=== PATIENT | male | born 1975 | race Caucasian/White ===

== ENCOUNTER 2024-02-02 00:32 | Emergency (ER) | payer OTHER, SELFPAY ==
[2024-02-02 00:33] VITALS: BMI 35.0
[2024-02-02 00:35] VITALS: BP 136/73
--- NOTE | 2024-02-02 01:03 | ED.GENMED ---
History of Present Illness
General
Chief Complaint: Extremity Pain (non-traumatic)
Source: patient
Exam Limitations: none
Time Seen by Provider: 02/02/24 00:51
History of Present Illness
History of Present Illness:
This is a 48 year old male that comes in with c/o swelling and redness of the left second toe. States that he has been to the Ward Assistant 2 Mondays ago. States that he was told to wear a toe crutch. States that he also put on a bunion pad on the toe
and for 2 mornings he did not change the pad. Sates that he changed the pad today and the skin is sluffing and the toe is very red and swollen. Significant other with patient states that there was a smell when they took off the pad. States that he
was a little nauseated. Denies any fever, chills, chest pain, SOB, abd pain, vomiting, diarrhea, headache, dizziness, urinary burning.
Past History
Past History
ED Past Medical History: GERD, HTN, Hypercholesterolemia, NIDDM and Other (Renal calculus, Blind in the right eye, Neuropathy)
ED Past Surgical History: Orthopedic (Right second Toe tip removed) and Other (Nasal surgery, Right eye surgery X 7)
Social History
Tobacco: Former smoker
Alcohol: None
Personal:
Living: with family
Review of Systems
Review of Systems
All Other Systems: ROS reviewed and negative except as documented in HPI and ROS
Constitutional: Reports no symptoms; Denies fever or chills
EENT: Reports no symptoms
Respiratory: Reports no symptoms; Denies cough or trouble breathing
Cardiac: Reports no symptoms; Denies chest pain
ABD/GI: Reports nausea; Denies abdominal pain, vomiting or diarrhea
: Reports no symptoms; Denies dysuria, frequency or urgency
Skin: Reports other (right second toe swollen and red)
Neurological: Reports no symptoms; Denies dizzy or headache
Psychiatric: Reports no symptoms
Phy Exam
General Physical Exam
General Presentation: well appearing and no apparent distress
General age: appears stated age
General Skin: warm and dry
General Habitus: normal
General Mental: alert
General Hydration: appears well hydrated
ENT Exam
ENT Exam: TM's normal, pharynx normal and neck supple
Eye Exam
Eye Exam: EOMI
Cardiovascular Exam
Cardiovascular Exam: regular rate/rhythm and normal peripheral pulses
Pulmonary Exam
Pulmonary Exam: lungs clear, no respiratory distress, no rales, chest non tender, no crackles, no rhonchi, no wheezing and no cough
Gastrointestinal Exam
Gastrointestinal Exam: normal bowel sounds, non tender, soft, no organomegaly, no pulsatile mass and non distended
Musculoskeletal Exam
Musculoskeletal Exam: full ROM and no edema
Skin Exam
Skin Exam: normal color, warm/dry, no petechia and redness (of the left second toe with skin sluffing and open wound on the planter aspect. Toe is very swollen )
Psychiatric Exam
Psychiatric Exam: normal mood/affect
Course
Orders/Labs/Results
Orders:
Orders
02/02/24 01:04
Toes 2 Views, Left CR [CR Toe(s) Min 2 Vw Left] Urgent
Comment:
Reason For Exam: Red and swollen.
Indicate Which Toe:: Second
02/02/24 01:22
Complete Blood Count/With Diff Urgent
Comprehensive Metabolic Panel Urgent
Lactic Acid Urgent
Wound Culture [Wound/Abscess/Other Culture] Urgent
LITTLE Source: Toe
Specimen Description:
Date Specimen was Collected: 02/02/24
Time Specimen was Collected: 01:11
Comment: Left second toe
02/02/24 01:54
Cephalexin Monohydrate [Keflex] 500 mg PO NOW STA
Sulfamethox./Trimethoprim Ds [Bactrim Ds 800 mg/160 mg] 1 tablet PO NOW STA
Abnormal Lab Results
02/02/24
01:22
RBC 4.08 L 10^6/uL
(4.70-6.10)
Hct 38.0 L %
(39.0-52.0)
MCH 33.1 H pg
(27.0-31.0)
Neutrophils % 76.1 H %
(42.2-75.2)
Lymphocytes % 14.5 L %
(20.5-51.1)
Glucose 139 H mg/dl
(70-99)
02/02/24 01:22
02/02/24 01:22
Hyperglycemia. Labs unremarkable. Lactic acid normal at 1.9
Vital Signs
Initial and Last Documented VS:
Initial Vital Signs
Temp Pulse Resp BP Pulse Ox
99.4 F 87 20 136/73 97
02/02/24 00:35 02/02/24 00:35 02/02/24 00:35 02/02/24 00:35 02/02/24 00:35
Last Documented Vital Signs
Temp Pulse Resp BP Pulse Ox
99.4 F 87 20 136/73 97
02/02/24 00:35 02/02/24 00:35 02/02/24 00:35 02/02/24 00:35 02/02/24 00:35
MDM/Problems Addressed
Differential Diagnosis Includes:
Cellulitis, Osteo
MDM/Problems Addressed:
This is a 48 year old male that comes in with c/o left second toe redness, swelling. States that he saw the business technology professor 2 Mondays ago and he was told to wear a toe crutch. Patient also put on a bunion pad and did not remove the pad for 2 days. States
that tonight when they took off the pad the toe is red and swollen. Significant other states that there was a smell.
Will check labs, X-ray toe
Back into see patient. Patient blood work shows that his WBC are normal along with his lactic acid. X-ray is negative for fractures or any obvious osteo. Will start patient on antibiotics. Patient to follow up with the business technology professor for further
evaluation. Patient to return with fever, increased redness or any other concerns.
Chronic conditions affecting care: DM (Neuropathy)
Acute Exacerbation and/or Progression of Chronic Illness: DM (Neuropathy)
*Radiology
Radiology exam reviewed: preliminary read by ED provider (Toe second left- Negative for fracture or osteomyelitis)
*Pulse Oximetry
Patient hypoxic: no
*EKG
Interpreted by ED Provider?: NA
Rate: EKG- N/A
*Gun Fertilizer Interpretation
Rate: Gun Fertilizer- N/A
*Critical Care Note
Total Time (30-74mins, 75-104mins- exclusive of procedures): Not Applicable
ED Attending Note
-
Portions of this chart may have been created with voice recognition software.� Occasional wrong word or��sound alike� substitutions may have occurred due to the inherent limitations of voice recognition software.
Discharge Plan
Departure
Patient Disposition: Home (Routine Discharge)
Date of Disposition: 02/02/24
Time of Disposition: 01:56
Patient with high blood pressure during this ER visit?: Yes
Condition: Good
Covid-19: Not Applicable
Discharge Problem:
Cellulitis of second toe of left foot
Instructions: Cellulitis (Skin Infection), Adult ED, Wound Care ED, BLOOD PRESSURE
Prescriptions:
New
cephalexin 500 mg capsule
500 mg PO QID Qty: 39 0RF
sulfamethoxazole-trimethoprim [Bactrim DS] 800-160 mg tablet
1 tab PO BID Qty: 19 0RF
No Action
simvastatin 20 MG tablet
20 mg PO DAILY
lisinopril 10 MG tablet
10 mg PO DAILY
metformin 500 MG tablet extended release 24 hr
1,000 mg PO BID
empagliflozin [Jardiance] 25 MG tablet
25 mg PO DAILY
amoxicillin-pot clavulanate 1 TABLET tablet
1 tab PO Q12 7 Days Qty: 14 0RF
Rx Instructions:
One tab by mouth twice daily x 7 days.
Referrals:
Gil To CRNP [Family Provider] -
Activity Restrictions/Additional Instructions:
As discussed, your blood work shows that your white blood cell count is normal along with your Lactic acid. Your X-ray is negative for any fractures or obvious osteo. Please follow up with your Ward Assistant. You have been given your first dose of
antibiotics here and prescriptions have been sent to your pharmacy. IF YOU HAVE ANY FEVER, INCREASED REDNESS OR SWELLING OR YOU HAVE ANY OTHER CONCERNS PLEASE RETURN TO THE EMERGENCY ROOM.
Interventions
Interventions:
*Risk Screen - Suicide Last Done: 02/02/24 00:40
*General Assessment Last Done: 02/02/24 00:40
*ED COVID-19 Vaccine History Last Done: 02/02/24 00:40
ED-Skin Assessment Last Done: 02/02/24 01:37
ED-Peripheral Vascular Assessment Last Done: 02/02/24 01:37
ED-Musculoskeletal Assessment Last Done: 02/02/24 01:37
Discharge Date and Time
Print Language: TURKMEN
[2024-02-02 01:31] LABS: % Basophils 0.4 % (0-2); % Eosinophils 0.9 % (0-6); % Immature Granulocytes 0.2 % (0-0.5); % Lymphocytes 14.5 % (20.5-51.1); % Monocytes 7.9 % (1.7-9.3); % Neutrophils 76.1 % (42.2-75.2); Absolute Eosinophils 0.1 10^3/uL (0-0.7); Absolute Lymphocytes 1.2 10^3/uL (1.2-3.4); Absolute Monocytes 0.6 10^3/uL (0.1-0.6); Absolute Neutrophils 6.2 10^3/uL (1.4-6.5); Hemoglobin 13.5 g/dL (13.0-18.0); Mean Corp Hgb Conc. 35.5 g/dL (33.0-37.0); Mean Corpuscular Hgb 33.1 pg (27.0-31.0); Mean Corpuscular Volume 93.1 fL (80.0-94.0); Mean Platelet Volume 9.8 fL (7.4-10.4); Nucleated Red Blood Cells % 0 % (-); Platelet Count 185 10^3/uL (130-400); Red Blood Cell Count 4.08 10^6/uL (4.70-6.10); White Blood Cell Count 8.1 10^3/uL (4.8-10.8)
[2024-02-02 01:43] LABS: Lactic Acid 1.9 mmol/L (0.7-2.0)
[2024-02-02 01:44] LABS: ALT (SGPT) 20 U/L (0-50); AST (SGOT) 20 U/L (17-59); Albumin 4.2 g/dl (3.5-5.0); Alkaline Phosphatase 76 U/L (38-126); Blood Urea Nitrogen 18 mg/dl (9-20); Calcium 9.1 mg/dl (8.4-10.2); Carbon Dioxide 26 mmol/L (22-30); Chloride 104 mmol/L (98-107); Estimated Creatinine Clearance > 125 ml/min; Glucose 139 mg/dl (70-99); Sodium 143 mmol/L (135-145); Total Bilirubin 0.7 mg/dl (0.2-1.3); Total Protein 6.4 g/dl (6.3-8.2); eGFR > 60.00
[2024-02-02] MEDS: BACTRIM DS 800 MG/160 MG 1 TABLET PO (02:04)
[2024-02-02] MEDS: KEFLEX 500 MG PO (02:04)
== END 2024-02-02 02:38 | disposition home or self-care (01) ==
LOC: EMR 00:32
PROVIDERS: Clinical Nurse Specialist Family Health; EMERGENCY PHYSICIAN Student in an Organized Health Care Education/Training Program; FAMILY PHYSICIAN Registered Nurse
DX: L03.032 Cellulitis of left toe (principal); E11.40 Type 2 diabetes mellitus with diabetic neuropathy, unspecified; E78.00 Pure hypercholesterolemia, unspecified; I10 Essential (primary) hypertension; K21.9 Gastro-esophageal reflux disease without esophagitis; Z87.891 Personal history of nicotine dependence
CPT/HCPCS: 99284; 73660; 80053; 83605; 85025; 87070; 87071; 87077; 87147; 87186; 87205

== ENCOUNTER 2024-02-05 19:39 | Inpatient (IN) | payer OTHER, SELFPAY ==
[2024-02-05 14:38] VITALS: BP 137/93
--- NOTE | 2024-02-05 14:38 | ED.SKININJ ---
HPI-Injury
<Krystal Perry BUSINESS LAW PROFESSOR - Last Filed: 02/05/24 14:42>
General
Chief Complaint: Skin Problem
Time Seen by Provider: 02/05/24 16:53
<Clive Fernandes Jr., PA-C - Last Filed: 02/05/24 18:34>
General
Source: patient
Exam Limitations: none
Nursing documentation reviewed up to this point in time: agreed with
History of Present Illness-Injury
Is pt an associate of [facility]?: No
Initial Injury comments:
48-year-old male with past medical history of diabetes hypertension presenting to the emergency department today with concerns of a wound to the second toe of the left foot diagnosed with infection to the foot 3 days ago started on Keflex and
Bactrim has been taking this as prescribed with no improvement. Denies systemic symptoms but has had ongoing redness swelling and drainage. He spoke with his field operator that recommended going to the ER for likely IV antibiotics.
ED Provider Triage
<Krystal Perry BUSINESS LAW PROFESSOR - Last Filed: 02/05/24 14:42>
-
Patient seen by provider in Triage?: Seen in Triage
Attestation: A medical screening examination has been initiated by a qualified medical provider. Based on the assessment performed at this time, it has been determined that an emergent medical condition may exist and the patient has been informed
that further medical evaluation and possible additional diagnostic testing may be needed.
HPI: 48 yo male NIDDM with non healing would left 2nd toe despite being on antibiotics Keflex and Bactrim. Seen here 02/01 and had xray. Wound first noted 4 nights ago, was seen here, followed up with Podiatry next day, spoke over phone with
Podiatry today for no improvement in redness or swelling. Has neuropathy so little pain. Denies fever/chills, n/v.
GENERAL: Alert , in no apparent distress
EYE: No visual abnormalities.
ENT: No visible abnormalities.
LUNGS: No acute respiratory distress
NEUROLOGICAL: Alert and oriented
SKIN: Skin intact. No visible changes.
MUSCULOSKELETAL: Moving extremities normally
PSYCH: Normal and appropriate interaction.
This is a medical evaluation conducted in person to initiate diagnostic evaluation and provide initial therapeutics. Please see further documentation by the treating clinician.
Past History
<Krystal Perry, BUSINESS LAW PROFESSOR - Last Filed: 02/05/24 14:42>
Past History
ED Past Medical History: GERD, HTN, Hypercholesterolemia, NIDDM and Other (Renal calculus, Blind in the right eye, Neuropathy)
ED Past Surgical History: Orthopedic (Right second Toe tip removed) and Other (Nasal surgery, Right eye surgery X 7)
Social History
Tobacco: Former smoker
Alcohol: None
Personal:
Living: with family
Review of Systems
<Clive Fernandes Jr., PA-C - Last Filed: 02/05/24 18:34>
Review of Systems
Allergies reviewed?: Yes
All Other Systems: ROS reviewed and negative except as documented in HPI and ROS
Phy Exam
<Clive Fernandes Jr., PA-C - Last Filed: 02/05/24 18:34>
Physical Exam
Physical Exam:
GENERAL: Alert , in no apparent distress
EYE: pupils equal and reactive
NECK: Supple, no significant adenopathy.
ENT: o/p clr, mmm.
CARDIAC: Regular rate and rhythm .
LUNGS: Clear breath sounds bilaterally, no acute respiratory distress, no wheezes/rales/rhonchi
ABDOMEN: Soft, without focal tenderness, no r/g, no cvat
NEUROLOGICAL: Alert and oriented, no focal neuro deficits
SKIN: Redness and swelling to the left second toe circumferential redness tenderness palpation to the area skin breakdown over the dorsal DIP. No purulent drainage no fluctuance or induration warm and dry, skin intact.
MUSCULOSKELETAL: No edema, well perfused.
PSYCH: Normal and appropriate interaction.
Course
<Krystal Perry, BUSINESS LAW PROFESSOR - Last Filed: 02/05/24 14:42>
Orders/Labs/Results
Orders:
Orders
02/05/24 15:02
Complete Blood Count/With Diff Urgent
Comprehensive Metabolic Panel Urgent
02/05/24 18:12
Vancomycin [Vancocin] 2,000 mg 0.9% Sodium Chloride 500 ml [Nss] 500 ml IV NOW
02/05/24 18:27
Zosyn 4.5 grams IVPB NOW Piperacillin/Tazo 4.5 Gram [Zosyn] 4.5 gram in 100 ml IV NOW
Abnormal Lab Results
02/05/24
15:02
RBC 4.56 L 10^6/uL
(4.70-6.10)
MCH 31.8 H pg
(27.0-31.0)
02/05/24 15:02
02/05/24 15:02
Vital Signs
Initial and Last Documented VS:
Initial Vital Signs
Temp Pulse Resp BP Pulse Ox
98.0 F 78 16 137/93 98
02/05/24 14:38 02/05/24 14:38 02/05/24 14:38 02/05/24 14:38 02/05/24 14:38
Last Documented Vital Signs
Temp Pulse Resp BP Pulse Ox
98.0 F 82 18 119/86 100
02/05/24 14:38 02/05/24 16:35 02/05/24 16:35 02/05/24 16:35 02/05/24 16:35
<Clive Fernandes Jr., PA-C - Last Filed: 02/05/24 18:34>
Orders/Labs/Results
Orders:
Orders
02/05/24 15:02
Complete Blood Count/With Diff Urgent
Comprehensive Metabolic Panel Urgent
02/05/24 18:12
Vancomycin [Vancocin] 2,000 mg 0.9% Sodium Chloride 500 ml [Nss] 500 ml IV NOW
02/05/24 18:27
Zosyn 4.5 grams IVPB NOW Piperacillin/Tazo 4.5 Gram [Zosyn] 4.5 gram in 100 ml IV NOW
Abnormal Lab Results
02/05/24
15:02
RBC 4.56 L 10^6/uL
(4.70-6.10)
MCH 31.8 H pg
(27.0-31.0)
02/05/24 15:02
02/05/24 15:02
Vital Signs
Initial and Last Documented VS:
Initial Vital Signs
Temp Pulse Resp BP Pulse Ox
98.0 F 78 16 137/93 98
02/05/24 14:38 02/05/24 14:38 02/05/24 14:38 02/05/24 14:38 02/05/24 14:38
Last Documented Vital Signs
Temp Pulse Resp BP Pulse Ox
98.0 F 82 18 119/86 100
02/05/24 14:38 02/05/24 16:35 02/05/24 16:35 02/05/24 16:35 02/05/24 16:35
<Clive Fernandes Jr., PA-C - Last Filed: 02/05/24 18:34>
MDM/Problems Addressed
MDM/Problems Addressed:
48-year-old male presenting to the emergency department today with concerns of ongoing redness and swelling to the left second toe. Was seen here 3 days ago started on Keflex and Bactrim with no improvement. Spoke with his field operator and told come
to the ER for IV antibiotics. On arrival vital signs are normal. Patient does have significant redness and swelling to the left second toe. Plan for admission for failed outpatient management. Based upon recent culture results patient was
started on Zosyn for Pseudomonas coverage.
<Clive Fernandes Jr., PA-C - Last Filed: 02/05/24 18:34>
*Critical Care Note
Total Time (30-74mins, 75-104mins- exclusive of procedures): Not Applicable
ED Attending Note
<Krystal Perry NP - Last Filed: 02/05/24 14:42>
-
Portions of this chart may have been created with voice recognition software.� Occasional wrong word or��sound alike� substitutions may have occurred due to the inherent limitations of voice recognition software.
Discharge Plan
Departure
Patient Disposition: Admit
Date of Disposition: 02/05/24
Time of Disposition: 18:32
Admit to: Med/Surg
Admit to doctor: Tuan
Presentation/result/management discussed w/ accepting MD/DO: Hospitalist
Patient with high blood pressure during this ER visit?: No
Condition: Good
Covid-19: Not Applicable
Discharge Problem:
Infection of toe
Prescriptions:
No Action
simvastatin 20 MG tablet
20 mg PO DAILY
lisinopril 10 MG tablet
10 mg PO DAILY
metformin 500 MG tablet extended release 24 hr
1,000 mg PO BID
empagliflozin [Jardiance] 25 MG tablet
25 mg PO DAILY
amoxicillin-pot clavulanate 1 TABLET tablet
1 tab PO Q12 7 Days Qty: 14 0RF
Rx Instructions:
One tab by mouth twice daily x 7 days.
cephalexin 500 mg capsule
500 mg PO QID Qty: 39 0RF
sulfamethoxazole-trimethoprim [Bactrim DS] 800-160 mg tablet
1 tab PO BID Qty: 19 0RF
Referrals:
Gil To CRNP [Family Provider] -
Interventions
Interventions:
*Risk Screen - Suicide Last Done: 02/05/24 14:40
*Neglect/Abuse Screening Last Done: 02/05/24 14:40
Discharge Date and Time
Print Language: CUBAN
[2024-02-05 15:14] LABS: % Basophils 0.6 % (0-2); % Eosinophils 0.9 % (0-6); % Immature Granulocytes 0.2 % (0-0.5); % Lymphocytes 20.7 % (20.5-51.1); % Monocytes 6.5 % (1.7-9.3); % Neutrophils 71.1 % (42.2-75.2); Absolute Eosinophils 0.1 10^3/uL (0-0.7); Absolute Lymphocytes 1.4 10^3/uL (1.2-3.4); Absolute Monocytes 0.4 10^3/uL (0.1-0.6); Absolute Neutrophils 4.7 10^3/uL (1.4-6.5); Hematocrit 41.4 % (39.0-52.0); Hemoglobin 14.5 g/dL (13.0-18.0); Mean Corpuscular Hgb 31.8 pg (27.0-31.0); Mean Corpuscular Volume 90.8 fL (80.0-94.0); Mean Platelet Volume 9.3 fL (7.4-10.4); Nucleated Red Blood Cells % 0 % (-); Platelet Count 212 10^3/uL (130-400); Red Blood Cell Count 4.56 10^6/uL (4.70-6.10); Red Cell Dist. Width 12.1 % (11.5-14.5); White Blood Cell Count 6.6 10^3/uL (4.8-10.8)
[2024-02-05 15:29] LABS: ALT (SGPT) 28 U/L (0-50); AST (SGOT) 29 U/L (17-59); Albumin 4.6 g/dl (3.5-5.0); Alkaline Phosphatase 64 U/L (38-126); Blood Urea Nitrogen 19 mg/dl (9-20); Calcium 9.4 mg/dl (8.4-10.2); Carbon Dioxide 27 mmol/L (22-30); Chloride 100 mmol/L (98-107); Glucose 93 mg/dl (70-99); Potassium 4.2 mmol/L (3.5-5.1); Sodium 139 mmol/L (135-145); Total Bilirubin 0.9 mg/dl (0.2-1.3); Total Protein 7.1 g/dl (6.3-8.2); eGFR > 60.00
[2024-02-05 16:35] VITALS: BP 119/86
[2024-02-05 18:12] VITALS: BMI 33.9
--- NOTE | 2024-02-05 18:57 | HPS.HSE ---
Family Physician
-
Family Physician: JOEL Arambula
Chief Complaint
-
Left second toe swelling/open ulceration plantar aspect
History of Present Illness
48-year-old male complaining of wound to his second toe of the left foot. He reports he was diagnosed with an infection 3 days ago he was started on Keflex and Bactrim and has been taking both these medications with no improvement. He reports
ongoing redness, swelling and drainage. He was referred to the ER by his carpenter mate for recommendation of IV antibiotics. He has past medical history of DM2, HTN, HLD, diabetic retinopathy right eye with legal blindness, renal calculi.
His recent culture on 02/02/2024 grew Pseudomonas aeruginosa and Serratia marcescens, which is sensitive to Zosyn. Patient denies headache, fever, chills, chest pain, palpitations, shortness of breath, cough, abdominal pain, nausea, vomiting,
diarrhea, urinary symptoms.
Medical History
Past Medical History
Past Medical History: Reports Other
Additional Past Medical History:
DM 2
HTN
HLD
Obesity
Renal calculi
Right eye blindness secondary to diabetic retinopathy
Past Surgical History: Reports Other
Additional Past Surgical History:
Tip of second right toe removal
Right eye surgery x 7
Nasal surgery
[place] teeth extraction
Social History
Tobacco: Non-smoker
Alcohol: None
Drug: None
Personal:
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
Family History
Family History: Other (Mother and father prediabetes, father HTN)
Allergies / Home Medications
Allergies reflects when Allergies were last updated in [employer].
Home Medications with original date entered in [employer]
Allergy/Medication List:
Allergies
Allergy/AdvReac Type Severity Reaction Status Date / Time
No Known Allergies Allergy Unverified 11/23/19 13:36
Home Medications
empagliflozin 25 mg tablet (Jardiance) 25 mg PO HS Diabetes 11/23/19
lisinopril 10 mg tablet 10 mg PO DAILY Blood pressure 11/23/19
metformin 500 mg tablet,extended release 24 hr 1,000 mg PO BID Diabetes 11/23/19
simvastatin 20 mg tablet 20 mg PO HS High cholesterol 11/23/19
cephalexin 500 mg capsule 500 mg PO QID Skin issues #39 caps 02/02/24
sulfamethoxazole 800 mg-trimethoprim 160 mg tablet (Bactrim DS) 1 tab PO BID Skin issues #19 tabs 02/02/24
atropine 1 % eye drops 1 drp RIGHT EYE HS 02/05/24
cholecalciferol (vitamin D3) 50 mcg (2,000 unit) tablet (Vitamin D3) 50 mcg PO DAILY 02/05/24
mupirocin 2 % topical ointment 1 applic topical HS affected foot 02/05/24
omega 1-ady-fka-fish oil 1,000 mg (120 mg-180 mg) capsule (Fish Oil) 1 cap PO HS 02/05/24
prednisolone acetate (PF) 1 % eye drops,suspension 1 drp RIGHT EYE DAILY 02/05/24
pyridoxine (vitamin B6) 100 mg tablet 100 mg PO DAILY 02/05/24
therapeutic multivitamin 1 tab PO DAILY 02/05/24
tirzepatide 7.5 mg/0.5 mL subcutaneous pen injector (Mounjaro) 7.5 mg SC MCCOLLUM 02/05/24
Review of Systems
-
History Source: Patient
A 12 point ROS was completed and negative except as noted: Yes
Constitutional: Denies Fever, Fatigue or Chills
EENT: Denies Sore Throat or Runny Nose
Respiratory: Denies Cough or Trouble Breathing
Cardiac: Denies Chest Pain, Diaphoresis, Palpitations or Syncope
Abdomen/GI: Denies Abdominal Pain, Nausea, Vomiting, Diarrhea, Constipated, Bloody Stools or Black Stools
: Denies Dysuria, Flank Pain, Incontinence or Urgency
Musculoskeletal: Reports Edema (left 2nd toe with erythema and swelling, ulceration along the proximal phalanx of the plantar aspect); Denies Joint Pain
Skin: Denies Itching or Rash
Neurological: Denies Dizzy, Headache or Weakness
Endocrine: Reports No Symptoms
Hematologic/Lymphatic: Reports No Symptoms
Psych: Reports Calm
Physical Exam
Vital Signs
Vital Signs
Temp Pulse Resp BP Pulse Ox
98.0 F 82 18 119/86 100
02/05/24 14:38 02/05/24 16:35 02/05/24 16:35 02/05/24 16:35 02/05/24 16:35
Physical Exam
Respiratory: Clear; No Wheezes, Rales or Rhonchi
Cardiac: S1/S2 and Regular Rhythm; No Murmur, Rub, Gallop or Peripheral Edema
Breast: Deferred by me
GI: Soft, Non Tender, Non Distended, Normal Bowel Sounds and No Hepatosplenomegaly
Rectal: Deferred by Provider
Genito-urinary: Deferred by me
Musculoskeletal: No Clubbing, No Cyanosis, No Edema and Other (left 2nd toe with erythema and swelling, ulceration along the proximal phalanx of the plantar aspect)
Skin: Warm and Dry; No Rash
Neuro: AO x 3, No Motor Deficits, Nonfocal/grossly intact, Cranial Nerves Intact and No Sensory Deficits; No Slurred Speech, Facial Droop, Tremors or Sedated
Psych: Calm
Laboratory Results
-
02/05/24 15:02
02/05/24 15:02
Laboratory Results
Total Bilirubin 0.9 mg/dl (0.2-1.3) 02/05/24 15:02
AST 29 U/L (17-59) 02/05/24 15:02
ALT 28 U/L (0-50) 02/05/24 15:02
Alkaline Phosphatase 64 U/L (38-126) 02/05/24 15:02
Impression/Plan
-
Impression/plan:
Admit to MedSurg
#Left foot second toe cellulitis concern for osteomyelitis in diabetic male-wound culture growing Pseudomonas aeruginosa and Serratia marcescens
WBC 6.6, afebrile, normotensive
-IV Zosyn
-Iv Vanco
-PT/OT consult
-Consult podiatry- pt
-Consult infectious disease
-If THERESE/TBI arterial duplex abnormal may consult vascular surgery-per Dr. Ibrahim
PT/OT/case management consult
X-ray left foot
1. Unchanged subcortical lucency along the tuft of the distal phalanx of the second toe which may represent osteomyelitis in the proper clinical setting.
2. No evidence of acute fracture.
3. Mild osteoarthritis of the first metatarsophalangeal joint.
#DM 2
-Accu-Cheks with SSI low , check HgbA1c
- HOLD metformin 1000 mg twice daily, Jardiance 25 mg at bedtime
-Continue Mounjaro 7.5 mg subcu Sundays
#HTN-benign
BP 119/86
-Continue lisinopril 10 mg daily
#HLD
-Continue simvastatin 20 mg at bedtime
#Diabetic retinopathy right eye with legal blindness
#renal calculi hx
DVT prophylaxis
Subcu Lovenox
Full code
[2024-02-05] MEDS: ZOSYN 100 IV (19:13)
--- NOTE | 2024-02-05 19:24 | EDRN ---
Report received, hospitalist at bedside, no delay sent to floor
[2024-02-05 19:44] VITALS: BMI 34.0
--- NOTE | 2024-02-05 19:54 | W.PN.UPDATE ---
Update Note
Progress Note Update
This is addendum to H&P written by Sophia Treadwell on 02/05/2024.� Patient seen and examined independently with LIBRARY CLERICAL ASSISTANT.
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
surface of his second left toe with surrounding erythema.�
Foot x-ray shows subcortical lucency along the tuft of distal phalanx of the second toe which may represent osteomyelitis.� Vancomycin/Zosyn.� Podiatry consulted.� ID consulted. Check Arterial US and consult vascular if abnormal.�
Hold oral diabetic medications.� Insulin sliding scale.
[2024-02-05 20:10] VITALS: BP 131/64
--- NOTE | 2024-02-05 20:23 | PHA.VAN.IN ---
Assessment
- Assessment
Renal Function: Appears similar to baseline
Concomitant Antimicrobials: ZOSYN
- Previous Dosing Experience
Previous Regimen: 1500MG IV Q8H
Date of Regimen: 11/24/19
Provided Trough of: 13.3
Provided AUC of: 421
Patient's SCR is: Similar to previous dosing experience (11/24/19 SCR = 0.9)
Patient's weight is: Similar to previous dosing experience (11/24/19 WT = 151.8 KG)
AUC Dosing Plan
- Dosing Variables
Dosing Weight (kg): 133.5
Dosing CrCl (ml/min): 100
Vd coefficient (L/kg): 0.6
- Empiric Dosing
Initial / Loading Dose: 2GM
Maintenance Regimen: 1750MG IV Q12H
Estimated AUC (mcg*h/mL): 533
Estimated Peak (mcg*h/mL): 33.6
Estimated Trough (mcg/ml): 13.4
Estimated Half Life (H): 7.9
Pharmacokinetics Vancomycin I
- -
Patient Age: 48
Patient Sex: Male
Vancomycin Day #: 1
Indication: Bone And Joint (OM [L] FOOT )
Requesting Provider: KIRT
Height / Weight:
Height 6 ft 6 in
Actual Weight 133.492 kg
Pertinent Past Medical History: DM; POST AMPUTATION
- Vital Signs / Lab Results
Temp Pulse Resp BP Pulse Ox
99.1 F 88 18 131/64 98
02/05/24 20:10 02/05/24 20:10 02/05/24 20:10 02/05/24 20:10 02/05/24 20:10
Lab Results - Hematology
02/05/24
15:02
WBC 6.6
Lab Results - Chemistry
02/05/24
15:02
BUN 19
Creatinine 1.0
Albumin 4.6
[2024-02-05] MEDS: VANCOCIN 540 MG IV (20:32)
[2024-02-05] MEDS: LIPITOR 10 MG PO (20:32)
[2024-02-05 21:40] LABS: Glucose - Point of Care 82 mg/dl (70-99)
[2024-02-05 23:32] VITALS: BP 131/71
[2024-02-06] MEDS: ZOSYN 50 IV ×2 (01:02→09:19)
[2024-02-06] MEDS: FLUSH (NSS) 2 FLUSH IV (01:02)
[2024-02-06] MEDS: VANCOCIN 535 MG IV (06:07)
[2024-02-06 07:00] VITALS: BP 140/85
[2024-02-06 07:45] LABS: % Basophils 0.9 % (0-2); % Eosinophils 2.2 % (0-6); % Immature Granulocytes 0.4 % (0-0.5); % Lymphocytes 29.1 % (20.5-51.1); % Monocytes 10.7 % (1.7-9.3); % Neutrophils 56.7 % (42.2-75.2); Absolute Basophils 0.1 10^3/uL (0-0.2); Absolute Eosinophils 0.1 10^3/uL (0-0.7); Absolute Lymphocytes 1.6 10^3/uL (1.2-3.4); Absolute Monocytes 0.6 10^3/uL (0.1-0.6); Absolute Neutrophils 3.1 10^3/uL (1.4-6.5); Hematocrit 38.9 % (39.0-52.0); Hemoglobin 13.8 g/dL (13.0-18.0); Mean Corp Hgb Conc. 35.5 g/dL (33.0-37.0); Mean Corpuscular Volume 93.1 fL (80.0-94.0); Mean Platelet Volume 9.7 fL (7.4-10.4); Nucleated Red Blood Cells % 0 % (-); Platelet Count 177 10^3/uL (130-400); Red Blood Cell Count 4.18 10^6/uL (4.70-6.10); Red Cell Dist. Width 11.9 % (11.5-14.5); White Blood Cell Count 5.4 10^3/uL (4.8-10.8)
[2024-02-06 08:16] LABS: ALT (SGPT) 24 U/L (0-50); AST (SGOT) 25 U/L (17-59); Albumin 3.9 g/dl (3.5-5.0); Alkaline Phosphatase 61 U/L (38-126); Blood Urea Nitrogen 16 mg/dl (9-20); Carbon Dioxide 25 mmol/L (22-30); Chloride 104 mmol/L (98-107); Estimated Creatinine Clearance > 125 ml/min; Glucose 82 mg/dl (70-99); Potassium 4.3 mmol/L (3.5-5.1); Sodium 140 mmol/L (135-145); Total Bilirubin 0.7 mg/dl (0.2-1.3); eGFR > 60.00
[2024-02-06 08:43] LABS: Glucose - Point of Care 87 mg/dl (70-99)
[2024-02-06] MEDS: ZESTRIL 10 MG PO (09:18)
[2024-02-06] MEDS: THERAGRAN 1 TABLET PO (09:18)
[2024-02-06] MEDS: VITAMIN B-6 100 MG PO (09:19)
[2024-02-06 09:33] LABS: Glycohemoglobin (HgbA1c) 5.3 % (4.0-5.6)
--- NOTE | 2024-02-06 09:49 | CON.ID ---
Consultation
-
Date/Time Consultation Requested: February 05, 20241941
Date/Time Consultation Performed: February 06, 2024 0951
Requesting Provider: Dr. Obie Duncan
Performing Provider: Dr. Cris Swift
Reason for Consultation: diabetic foot wound
Chief Complaint / Past History
Chief Complaint
Left second toe infection
History of Present Illness
48 year old male with DM, neuropathy who presented to the ED on February 04 with worsening left second toe redness and swelling. He reports he recently started using a toe crutch for the left second toe hammertoe. However he then developed a wound
on top of his toe also at the bottom. His toe was red. He came to the ER on February 01. X-ray was suspicious for osteomyelitis. The wound was swabbed for culture. He was then sent home on cephalexin and Bactrim. However his toe continue to
deteriorate with worsening swelling, redness and drainage from the wound. No fevers or chills. Yesterday he was started on . Zosyn and vancomycin.
Past History
Additional Past Medical History:
Diabetes mellitus
Neuropathy
Diabetic retinopathy with right eye blindness
Hypertension
HLD
Nephrolithiasis
Nasal surgery
R second toe partial amputation (2019)
Allergy History:
No Known Allergies Allergy (Unverified 11/23/19 13:36)
Medications Reviewed: Yes
Current Antibiotics:
Vancomycin
zosyn
Social History
Tobacco: Former Smoker
Alcohol: None
Drug: None
Personal:
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
Family History
Family History: Not Pertinent
Review of Systems
Review of Systems
General: Negative Fever, Chills or Change in Appetite
HEENT: Negative Sinus Problems or Headache
Cardiovascular: Negative Chest Pain or Dyspnea
Respiratory: Negative Dyspnea or Cough
Gasteroenterology: Negative Nausea, Vomiting or Diarrhea
Genital / Urological: Negative Dysuria or Flank Pain
Endocrine: Negative Weakness
Neurological: Negative Dizziness
All systems: All other systems were reviewed and were negative
Vital Signs
Temp Pulse Resp BP Pulse Ox
97.7 F 77 16 140/85 98
02/06/24 07:00 02/06/24 07:00 02/06/24 07:00 02/06/24 07:00 02/06/24 07:00
Physical Exam
Physical Exam
Constitutional: No Acute Distress and Comfortable
Eyes: No Conjunctival Hemorrhage and Sclera Anicteric
Cardiovascular: Regular Rate and S1/S2
Pulmonary: Clear
Gastrointestinal: Soft, Non Tender, Non Distended and Normal Bowel Sounds
Genito-Urinary: Negative CVA Tenderness
Extremities: Venous Insufficiency (bilaterally)
Wound: Other (left foot: entire 2nd toe bright red, + edema, + wound over dorsum distal joint, + ulcer at proximal digit, plantar side)
Lab / Diagnostic Study Results
02/06/24 06:43
02/06/24 06:43
Abs Immat Gran (auto) 0.0 10^3/uL (0-0.05) 02/06/24 06:43
Absolute Neuts (auto) 3.1 10^3/uL (1.4-6.5) 02/06/24 06:43
Absolute Lymphs (auto) 1.6 10^3/uL (1.2-3.4) 02/06/24 06:43
Absolute Monos (auto) 0.6 10^3/uL (0.1-0.6) 02/06/24 06:43
Absolute Basos (auto) 0.1 10^3/uL (0-0.2) 02/06/24 06:43
Immature Gran % 0.4 % (0-0.5) 02/06/24 06:43
Neutrophils % 56.7 % (42.2-75.2) 02/06/24 06:43
Lymphocytes % 29.1 % (20.5-51.1) 02/06/24 06:43
Monocytes % 10.7 % (1.7-9.3) H 02/06/24 06:43
Eosinophils % 2.2 % (0-6) 02/06/24 06:43
Basophils % 0.9 % (0-2) 02/06/24 06:43
Microbiology Results
Micro:
02/05/24 20:23 MRSA Screen - Pending
Nose
02/05/24 Left Foot XRAY: Unchanged subcortical lucency along the tuft of the distal phalanx of the second toe which may represent osteomyelitis in the proper clinical setting.
Assessment / Plan
# Acute left second toe cellulitis
# Diabetic wound infection left second toe
-Ordered MRI of left foot wo and w contrast
-Arterial duplex pending
-02/01 Wound swab Pseudomonas, Serratia
- Continue Zosyn at higher dose 4.5g IV q6h.
- DC Vancomycin.
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
Diabetes mellitus
Neuropathy
Diabetic retinopathy with right eye blindness
Hypertension
HLD
Nephrolithiasis
Nasal surgery
R second toe partial amputation (2019)
--- NOTE | 2024-02-06 11:51 | W.PN.HOSP.TC ---
Today's Communication/Plan
-
THERESE pending
MRI pending
IV abx
Assessment / Plan
Assessment / Plan
Respiratory: Clear; No Wheezes, Rales or Rhonchi
Cardiac: S1/S2 and Regular Rhythm; No Murmur, Rub, Gallop or Peripheral Edema
Breast: Deferred by me
GI: Soft, Non Tender, Non Distended, Normal Bowel Sounds and No Hepatosplenomegaly
Rectal: Deferred by Provider
Genito-urinary: Deferred by me
Musculoskeletal: No Clubbing, No Cyanosis, No Edema and Other (left 2nd toe with erythema and swelling, ulceration along the proximal phalanx of the plantar aspect)
Skin: Warm and Dry; No Rash
Neuro: AO x 3, No Motor Deficits, Nonfocal/grossly intact, Cranial Nerves Intact and No Sensory Deficits; No Slurred Speech, Facial Droop, Tremors or Sedated
Psych: Calm
#Acute Left foot second toe cellulitis
#Diabetic wound infection
-IV Zosyn dose increased per ID
-Iv Vanco stopped
-Consult podiatry- pt
-Consult infectious disease
-THERESE/TBI arterial duplex pending-if abnormal may require vascular intervention
-MRI left foot pending
-Appreciate ID recs
#DM 2
-Accu-Cheks with SSI low , check HgbA1c
- HOLD metformin 1000 mg twice daily, Jardiance 25 mg at bedtime
-Continue Mounjaro 7.5 mg subcu Sundays
#HTN-benign
-Continue lisinopril 10 mg daily
#HLD
-Continue simvastatin 20 mg at bedtime
#Diabetic retinopathy right eye with legal blindness
#renal calculi hx
DVT prophylaxis
Subcu Lovenox
Full code
Anticipated Discharge: > 48 hours
Subjective/Interval History
-
Date of Service: February 06, 2024
states of left toe infection and redness
Objective Data
-
Labs:
Laboratory Results
02/06/24
06:43
WBC 5.4
Hgb 13.8
Hct 38.9 L
Plt Count 177
Sodium 140
Potassium 4.3
Chloride 104
Carbon Dioxide 25
BUN 16
Creatinine 1.0
Glucose 82
Calcium 9.0
Total Bilirubin 0.7
AST 25
ALT 24
Alkaline Phosphatase 61
Vital Signs:
Vital Signs
Temp Pulse Resp BP Pulse Ox
97.7 F 77 16 140/85 98
02/06/24 07:00 02/06/24 07:00 02/06/24 07:00 02/06/24 07:00 02/06/24 07:00
I&O
02/05/24 02/06/24 02/07/24
06:59 06:59 06:59
Intake Total 1040 / 1040
Balance 1040 / 1040
[2024-02-06 12:19] LABS: Glucose - Point of Care 90 mg/dl (70-99)
[2024-02-06] MEDS: ZOSYN 100 IV ×2 (14:22→20:33)
--- NOTE | 2024-02-06 15:00 | CM ---
CM met with patient and significant other bedside, initial assessment completed. Patient resides with his significant other, son, daughter, and father in a three story home, two steps to enter. Patient denies use of DME, denies VN or SNF history.
Patient confirms PCP Gil To, pharmacy [facility], confirms prescription coverage. Patient denies insecurities at home. Per PT, no skilled need. CM will continue to follow for all discharge planning needs.
Plan; home no needs likely.
[2024-02-06 15:35] VITALS: BP 124/78
--- NOTE | 2024-02-06 16:27 | W.CS.POD ---
Consult Summary - Podiatry
-
48 yo diabetic neuropathic male known to myself for long time , has developed a LT 2nd toe ulcer due to wearing a tight toe crutch few days ago, and it gotten worse and developed red, swollen with drainage. HE had tried Po abx as out pt and still
the toe looked infected so sent him to the [facility] for IV abx therapy, seen him at bedside with lot improved LT 2nd toe redness and swelling, No pus noted, HE denies any fever, chills.
He is on IV vanco and Zosyn
Exam ; B/L pedal pulses palpable.
Loss of protective sensation b/l feet.
LT 2nd toe resolved erythema, resolved edema, presence of superficial skin ulceration at the base of the toe,
There is some thick keratotic callus distal pulp, no open ulcerations noted.
Xrays shows subcortical lucency at distal tuft of the LT 2nd distal toe,
WBC count is WNL
THERESE's are WNL
A/P: LT foot cellultis - resolved well
LT 2nd toe sup ulceration - healing well.
Possible LT 2nd toe distal tuft lucency.
Plan : Abx per ID
Discussed with patient that there is well improved cellultis and healing toe .
Regarding toe lucency, I am not very convinced that it is osteomyelitis, Will pay close attention to the toe as an out patient
No surgical intervention by podiatry .
HE can use his pressure relief shoe .
[2024-02-06 17:04] LABS: Glucose - Point of Care 84 mg/dl (70-99)
[2024-02-06] MEDS: LOVENOX 40 MG SC (17:22)
[2024-02-06] MEDS: LIPITOR 10 MG PO (21:15)
[2024-02-06 21:31] LABS: Glucose - Point of Care 117 mg/dl (70-99)
[2024-02-06 23:31] VITALS: BP 114/67
[2024-02-07] MEDS: ZOSYN 100 IV ×4 (02:10→19:47)
[2024-02-07 07:00] VITALS: BP 128/85
[2024-02-07] MEDS: THERAGRAN 1 TABLET PO (08:00)
[2024-02-07] MEDS: VITAMIN B-6 100 MG PO (08:01)
[2024-02-07] MEDS: ZESTRIL 10 MG PO (08:01)
[2024-02-07 08:06] LABS: Glucose - Point of Care 91 mg/dl (70-99)
[2024-02-07 08:46] LABS: % Basophils 0.7 % (0-2); % Eosinophils 2.1 % (0-6); % Immature Granulocytes 0.3 % (0-0.5); % Monocytes 8.1 % (1.7-9.3); % Neutrophils 64.8 % (42.2-75.2); Absolute Basophils 0.1 10^3/uL (0-0.2); Absolute Eosinophils 0.1 10^3/uL (0-0.7); Absolute Lymphocytes 1.6 10^3/uL (1.2-3.4); Absolute Monocytes 0.6 10^3/uL (0.1-0.6); Absolute Neutrophils 4.4 10^3/uL (1.4-6.5); Hematocrit 43.4 % (39.0-52.0); Hemoglobin 15.3 g/dL (13.0-18.0); Mean Corp Hgb Conc. 35.3 g/dL (33.0-37.0); Mean Corpuscular Hgb 32.8 pg (27.0-31.0); Mean Corpuscular Volume 93.1 fL (80.0-94.0); Mean Platelet Volume 9.4 fL (7.4-10.4); Nucleated Red Blood Cells % 0 % (-); Platelet Count 203 10^3/uL (130-400); Red Blood Cell Count 4.66 10^6/uL (4.70-6.10); Red Cell Dist. Width 11.9 % (11.5-14.5); White Blood Cell Count 6.8 10^3/uL (4.8-10.8)
[2024-02-07 09:21] LABS: ALT (SGPT) 24 U/L (0-50); AST (SGOT) 25 U/L (17-59); Albumin 4.4 g/dl (3.5-5.0); Alkaline Phosphatase 60 U/L (38-126); Blood Urea Nitrogen 15 mg/dl (9-20); Calcium 9.5 mg/dl (8.4-10.2); Carbon Dioxide 27 mmol/L (22-30); Chloride 103 mmol/L (98-107); Estimated Creatinine Clearance > 125 ml/min; Glucose 104 mg/dl (70-99); Potassium 4.9 mmol/L (3.5-5.1); Sodium 141 mmol/L (135-145); Total Bilirubin 0.7 mg/dl (0.2-1.3); Total Protein 6.7 g/dl (6.3-8.2); eGFR > 60.00
--- NOTE | 2024-02-07 11:16 | CM ---
CM reviewed chart, met with patient bedside. Patient reports no needs to CM at this time. Patient remains on IV antibiotics. CM will continue to follow for all discharge planning needs.
Plan; home no needs, watch for IV antibiotic needs.
[2024-02-07 11:44] LABS: Glucose - Point of Care 121 mg/dl (70-99)
--- NOTE | 2024-02-07 11:50 | W.PN.HOSP.TC ---
Today's Communication/Plan
-
Infectious disease recommendation
Continue with IV antibiotics
Monitor POC
Assessment / Plan
Assessment / Plan
Respiratory: Clear; No Wheezes, Rales or Rhonchi
Cardiac: S1/S2 and Regular Rhythm; No Murmur, Rub, Gallop or Peripheral Edema
Breast: Deferred by me
GI: Soft, Non Tender, Non Distended, Normal Bowel Sounds and No Hepatosplenomegaly
Rectal: Deferred by Provider
Genito-urinary: Deferred by me
Musculoskeletal: No Clubbing, No Cyanosis, No Edema and Other (left 2nd toe with erythema and swelling improved
Skin: Warm and Dry; No Rash
Neuro: AO x 3, No Motor Deficits, Nonfocal/grossly intact, Cranial Nerves Intact and No Sensory Deficits; No Slurred Speech, Facial Droop, Tremors or Sedated
Psych: Calm
#Acute Left foot second toe cellulitis/ulceration
#Diabetic wound infection
-IV Zosyn dose increased per ID
-Iv Vanco stopped
-Consult podiatry- pt -correspondence noted and not concern for osteomyelitis
-THERESE/TBI arterial duplex and noted to be without significant stenosis
-MRI left foot noted.
-Appreciate ID recs -? P.o. antibiotics.
#DM 2
-Accu-Cheks with SSI low , check HgbA1c at 5.3
- HOLD metformin 1000 mg twice daily, Jardiance 25 mg at bedtime
-Continue Mounjaro 7.5 mg subcu Sundays
#HTN-benign
-Continue lisinopril 10 mg daily
#HLD
-Continue simvastatin 20 mg at bedtime
#Diabetic retinopathy right eye with legal blindness
#renal calculi hx
DVT prophylaxis
Subcu Lovenox
Full code
Anticipated Discharge: Today
Subjective/Interval History
-
Date of Service: February 07, 2024
states improvement left toe erythema and sensation
afebrile
Objective Data
-
Labs:
Laboratory Results
02/07/24
08:27
WBC 6.8
Hgb 15.3
Hct 43.4
Plt Count 203
Sodium 141
Potassium 4.9
Chloride 103
Carbon Dioxide 27
BUN 15
Creatinine 1.0
Glucose 104 H
Calcium 9.5
Total Bilirubin 0.7
AST 25
ALT 24
Alkaline Phosphatase 60
Vital Signs:
Vital Signs
Temp Pulse Resp BP Pulse Ox
98.3 F 81 18 128/85 98
02/07/24 07:00 02/07/24 07:00 02/07/24 07:00 02/07/24 07:00 02/07/24 08:20
I&O
02/06/24 02/07/24 02/08/24
06:59 06:59 06:59
Intake Total 1040 / 1040 1340 / 1340
Balance 1040 / 1040 1340 / 1340
Data Reviewed
-
Total Time Spent with Patient (in minutes): 51
[2024-02-07 14:01] LABS: Glucose - Point of Care 82 mg/dl (70-99)
--- NOTE | 2024-02-07 14:31 | W.PN.ID1 ---
Date of Service
Date of Service: February 07, 2024
Today's Communication
- Tomorrow, transition to cipro 500mg po bid through 02/11.
- Ordered ECG for baseline QTc.
Assessment / Plan
# Acute left second toe cellulitis, improving
# Diabetic wound infection left second toe
-MRI of left foot wo and w contrast osteo distal tuft of 2nd toe. However, does not clinically correlate, wound location is not located at distal tuft.
-Arterial duplex no stenosis
-02/01 Wound swab Pseudomonas, Serratia
- Continue Zosyn at higher dose 4.5g IV q6h (d2).
- Tomorrow, transition to cipro 500mg po bid through 02/11.
- Ordered ECG for baseline QTc.
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
Diabetes mellitus
Neuropathy
Diabetic retinopathy with right eye blindness
Hypertension
HLD
Nephrolithiasis
Nasal surgery
R second toe partial amputation (2019)
Chief Complaint
-: Cellulitis
Subjective / Review of Systems
Toe less inflamed.
Vital Signs / Physical Exam
Vital Signs
Vital Signs
Temp Pulse Resp BP Pulse Ox
98.3 F 81 18 128/85 98
02/07/24 07:00 02/07/24 07:00 02/07/24 07:00 02/07/24 07:00 02/07/24 08:20
Physical Exam
Constitutional: No Acute Distress and Comfortable
Cardiovascular: Regular Rate and S1/S2
Pulmonary: Clear
Gastrointestinal: Soft, Non Tender and Non Distended
Wound: Other (left second toe erythema and edema ; dorsal wound stable)
Objective Data
Lab Data
Lab Results
02/07/24 08:27
02/07/24 08:27
Estimated Creat Clear > 125 ml/min 02/07/24 08:
Total Bilirubin 0.7 mg/dl (0.2-1.3) 02/07/24 08:27
AST 25 U/L (17-59) 02/07/24 08:27
ALT 24 U/L (0-50) 02/07/24 08:27
Alkaline Phosphatase 60 U/L (38-126) 02/07/24 08:27
Most recent labs reviewed.
Micro Results:
02/05/24 20:23 MRSA Screen - Final
Nose No Methicillin Resistant Staphylococcus aureus isolated.
02/05/24 Left Foot XRAY: Unchanged subcortical lucency along the tuft of the distal phalanx of the second toe which may represent osteomyelitis in the proper clinical setting.
02/06/24 MRI left foot wo and w contrast: Osseous: Marrow edema like signal and mild infiltrative T1 hypointense signal involving the distal tuft of the second digit distal phalanx in keeping with osteomyelitis.
[2024-02-07 15:12] VITALS: BP 146/83
[2024-02-07 16:46] LABS: Glucose - Point of Care 120 mg/dl (70-99)
[2024-02-07] MEDS: LOVENOX 40 MG SC (17:03)
[2024-02-07] MEDS: LIPITOR 10 MG PO (21:05)
[2024-02-07 21:13] LABS: Glucose - Point of Care 112 mg/dl (70-99)
--- NOTE | 2024-02-07 22:10 | W.PN.POD ---
Today's Communication
Today's Communication
Stable per podiatry to D/C
HE can cont with topical abx cream to the toe and clean sock .
Assessment / Plan
-
LT foot cellultis - resolved well
LT 2nd toe superficial ulceration - healing well.
Possible LT 2nd toe distal tuft lucency.
Plan : Appreciate ID help. Agree with PO abx another 1 wk
Discussed with patient that there is well improved cellultis and healing toe .
Regarding toe lucency, I am not very convinced that it is osteomyelitis, Will pay close attention to the toe as an out patient
No surgical intervention by podiatry .
HE can use his pressure relief shoe .
PAtient stable per podiatry to D/C
Subjective
Chief Complaint
Left 2nd toe cellulitis and ulceration
Subjective
Patient seen at bedside, doing well, no new complaints offered, Denies any toe pain, resolved redness and swelling to the toe
Objective
Temp Pulse Resp BP Pulse Ox
99 F 85 16 146/83 98
02/07/24 15:12 02/07/24 15:12 02/07/24 15:12 02/07/24 15:12 02/07/24 08:20
02/07/24 08:27
02/07/24 08:27
Vital Signs and Lab results were reviewed.
Exam ; B/L pedal pulses palpable.
Loss of protective sensation b/l feet.
LT 2nd toe resolved erythema, resolved edema, presence of superficial skin ulceration at the base of the toe, no purulence, dry scab noted at the base of the toe
There is some thick keratotic callus distal pulp, no open ulcerations noted.
[2024-02-07 22:52] VITALS: BP 116/80
[2024-02-08] MEDS: ZOSYN 100 IV ×2 (02:08→07:34)
[2024-02-08] MEDS: THERAGRAN 1 TABLET PO (07:33)
[2024-02-08] MEDS: ZESTRIL 10 MG PO (07:33)
[2024-02-08] MEDS: VITAMIN B-6 100 MG PO (07:33)
[2024-02-08 07:55] LABS: Glucose - Point of Care 111 mg/dl (70-99)
[2024-02-08 08:05] VITALS: BP 124/83
--- NOTE | 2024-02-08 10:51 | W.PN.HOSP.TC ---
Today's Communication/Plan
-
po abx
op podiatry f/u
Assessment / Plan
Assessment / Plan
Respiratory: Clear; No Wheezes, Rales or Rhonchi
Cardiac: S1/S2 and Regular Rhythm; No Murmur, Rub, Gallop or Peripheral Edema
Breast: Deferred by me
GI: Soft, Non Tender, Non Distended, Normal Bowel Sounds and No Hepatosplenomegaly
Rectal: Deferred by Provider
Genito-urinary: Deferred by me
Musculoskeletal: No Clubbing, No Cyanosis, No Edema and Other (left 2nd toe with erythema and swelling improved
Skin: Warm and Dry; No Rash
Neuro: AO x 3, No Motor Deficits, Nonfocal/grossly intact, Cranial Nerves Intact and No Sensory Deficits; No Slurred Speech, Facial Droop, Tremors or Sedated
Psych: Calm
#Acute Left foot second toe cellulitis/ulceration
#Diabetic wound infection
-IV Zosyn dose transitioned to po cipro per ID. EKG with QtC WNL at 421
-Iv Vanco stopped
-Consult podiatry- pt -correspondence noted and not concern for osteomyelitis
-THERESE/TBI arterial duplex and noted to be without significant stenosis
-MRI left foot noted.
-Appreciate ID recs -? P.o. antibiotics.
#DM 2
-Accu-Cheks with SSI low , check HgbA1c at 5.3
- HOLD metformin 1000 mg twice daily, Jardiance 25 mg at bedtime
-Continue Mounjaro 7.5 mg subcu Sundays
#HTN-benign
-Continue lisinopril 10 mg daily
#HLD
-Continue simvastatin 20 mg at bedtime-hold while on cipro
#Diabetic retinopathy right eye with legal blindness
#renal calculi hx
DVT prophylaxis
Subcu Lovenox
Full code
More than 30 minutes spent in discharge including
Final examination of the patient
Summarizing hospital stay
Instructions for continuing care to all relevant caregivers
Preparation of discharge records, prescriptions, and referral forms
Total time spent (in minutes): 45
Anticipated Discharge: Today
Subjective/Interval History
-
Date of Service: February 08, 2024
continues to feel better
Objective Data
-
Vital Signs:
Vital Signs
Temp Pulse Resp BP Pulse Ox
98.0 F 81 19 124/83 97
02/08/24 08:05 02/08/24 08:05 02/08/24 08:05 02/08/24 08:05 02/08/24 08:05
I&O
02/07/24 02/08/24 02/09/24
06:59 06:59 06:59
Intake Total 1340 / 1340 1160 / 1160
Balance 1340 / 1340 1160 / 1160
[2024-02-08] MEDS: CIPRO 500 MG PO (11:08)
[2024-02-08 11:14] LABS: Glucose - Point of Care 120 mg/dl (70-99)
--- NOTE | 2024-02-08 11:17 | W.PN.ID1 ---
Date of Service
Date of Service: February 08, 2024
Today's Communication
- Transition Zosyn to cipro 500mg po bid through 02/11.
Assessment / Plan
# Acute left second toe cellulitis, improving
# Diabetic wound infection left second toe
-MRI of left foot wo and w contrast osteo distal tuft of 2nd toe. However, does not clinically correlate, wound location is not located at distal tuft.
-Arterial duplex no stenosis
-02/01 Wound swab Pseudomonas, Serratia
- Transition Zosyn to cipro 500mg po bid through 02/11.
QTc normal.
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
Diabetes mellitus
Neuropathy
Diabetic retinopathy with right eye blindness
Hypertension
HLD
Nephrolithiasis
Nasal surgery
R second toe partial amputation (2019)
Chief Complaint
-: Cellulitis
Subjective / Review of Systems
no complaints
Vital Signs / Physical Exam
Vital Signs
Vital Signs
Temp Pulse Resp BP Pulse Ox
98.0 F 81 19 124/83 97
02/08/24 08:05 02/08/24 08:05 02/08/24 08:05 02/08/24 08:05 02/08/24 08:05
Physical Exam
Wound: Other (left second toe decreasing edema/erythema)
Objective Data
Lab Data
Lab Results
02/07/24 08:27
02/07/24 08:27
Estimated Creat Clear > 125 ml/min 02/07/24 08:27
Total Bilirubin 0.7 mg/dl (0.2-1.3) 02/07/24 08:27
AST 25 U/L (17-59) 02/07/24 08:27
ALT 24 U/L (0-50) 02/07/24 08:27
Alkaline Phosphatase 60 U/L (38-126) 02/07/24 08:27
Most recent labs reviewed.
Micro Results:
02/05/24 20:23 MRSA Screen - Final
Nose No Methicillin Resistant Staphylococcus aureus isolated.
02/05/24 Left Foot XRAY: Unchanged subcortical lucency along the tuft of the distal phalanx of the second toe which may represent osteomyelitis in the proper clinical setting.
02/06/24 MRI left foot wo and w contrast: Osseous: Marrow edema like signal and mild infiltrative T1 hypointense signal involving the distal tuft of the second digit distal phalanx in keeping with osteomyelitis.
--- NOTE | 2024-02-08 11:50 | CM ---
Patient seen bedside, for discharge today. Patient reports no needs to CM at this time, has transportation home. CM will continue to follow for all discharge planning needs.
Plan; home with family, no needs.
--- NOTE | 2024-02-08 13:29 | W.DCSUMMARY ---
Discharge Summary
Discharge Data
Date of Admission: 02/05/24
Date of Discharge: 02/08/24
-
Pending Results: No
Hospital Course
48-year-old male past medical history of primary hypertension, diabetes, neuropathy, hyperlipidemia who was presented with left foot second toe infection. Patient was eval outpatient with podiatry and was on antibiotics without significant
improvement erythema or wound healing. Patient was admitted to hospital and underwent imaging studies. ABIs were performed without significant peripheral arterial disease or stenosis noted. Patient underwent MRI of the left foot with lucency and
per radiologist with concern for osteomyelitis. However per podiatry not concern for osteomyelitis. Patient was started on IV broad-spectrum antibiotic with vancomycin and Zosyn. Infectious disease was consulted. Patient Zosyn dose was continued
and vancomycin was discontinued. Patient wound culture resulted with Pseudomonas. Patient with significant improvement in erythema of the wound and plan was to transition patient to p.o. ciprofloxacin. EKG was checked and QTc within normal limit.
Patient remained afebrile. Per podiatry and infectious disease patient can be discharged with outpatient follow-up.
Discharge Plan
-
Patient Disposition: Home (Routine Discharge)
Discharge Diagnosis/Procedures: Acute Left foot second toe cellulitis/ulceration
Diabetic wound infection
Condition: Fair
Diet: Diabetic, Carb Controlled
Activity: With assistance and As tolerated
Driving Restrictions: As prior to admission
Referrals:
Lester Smiley DPM [Specified Professional Personl] - in one week
Gil To CRNP [Family Provider] - in less than 1 week
Prescriptions:
New
ciprofloxacin HCl [Cipro] 500 mg tablet
500 mg PO BID Qty: 10 0RF
Continued
lisinopril 10 MG tablet
10 mg PO DAILY
metformin 500 MG tablet extended release 24 hr
1,000 mg PO BID
Jardiance 25 MG tablet
25 mg PO HS
therapeutic multivitamin Tablet
1 tab PO DAILY
pyridoxine (vitamin B6) 100 mg Tablet
100 mg PO DAILY
cholecalciferol (vitamin D3) [Vitamin D3] 50 mcg (2,000 unit) Tablet
50 mcg PO DAILY
omega 7-abe-cmy-fish oil [Fish Oil] 1,000 (120-180) mg Capsule
1 cap PO HS
Mounjaro 7.5 mg/0.5 mL Pen Injector
7.5 mg SC MCCOLLUM
mupirocin 2 % Ointment
1 applic TOPICAL HS
Patient Comments:
02/05/24: Patient states he uses an old tube he had from previously.
prednisolone acetate (PF) 1 % Drops,Suspension
1 drp RIGHT EYE DAILY
Patient Comments:
02/05/24: last filled December 2022
atropine 1 % Drops
1 drp RIGHT EYE HS
Patient Comments:
02/05/24: last filled December 2022
Held
simvastatin 20 MG tablet
20 mg PO HS
Hold Instructions: Resume on 02/13/24. Hold while on Cipro antibiotics
Discontinued
cephalexin 500 mg capsule
500 mg PO QID Qty: 39 0RF
sulfamethoxazole-trimethoprim [Bactrim DS] 800-160 mg tablet
1 tab PO BID Qty: 19 0RF
Discharge Orders:
Discharge Patient (As Directed); Ordered 02/08/24
Ordered By: Obie Duncan
Discharge Date and Time
Print Language: SAO TOMEAN
[2024-02-08] MEDS: AFLURIA (36 mos+) 2024-2025 FORMULA 0.5 ML IM (14:59)
[2024-02-08 15:32] VITALS: BP 121/82
== END 2024-02-08 15:44 | disposition home or self-care (01) | DRG 639 ==
LOC: 4 WEST ACU 19:39
PROVIDERS: Clinical Nurse Specialist Family Health; Registered Nurse; ADMITTING PHYSICIAN Hospitalist; ATTENDING PHYSICIAN Hospitalist; CONSULT PHYSICIAN Internal Medicine Infectious Disease; CONSULT PHYSICIAN Podiatrist Foot & Ankle Surgery; EMERGENCY PHYSICIAN Emergency Medicine; FAMILY PHYSICIAN Registered Nurse
PROC: 3E02340 Introduction of Influenza Vaccine into Muscle, Percutaneous Approach (ICD-10-PCS; 2024-02-08)
DX: E11.628 Type 2 diabetes mellitus with other skin complications (principal); L03.032 Cellulitis of left toe; E11.621 Type 2 diabetes mellitus with foot ulcer; L97.529 Non-pressure chronic ulcer of other part of left foot with unspecified severity; M19.072 Primary osteoarthritis, left ankle and foot; M20.42 Other hammer toe(s) (acquired), left foot; E66.9 Obesity, unspecified; Z68.33 Body mass index [BMI] 33.0-33.9, adult; E11.40 Type 2 diabetes mellitus with diabetic neuropathy, unspecified; E11.319 Type 2 diabetes mellitus with unspecified diabetic retinopathy without macular edema; I10 Essential (primary) hypertension; E78.00 Pure hypercholesterolemia, unspecified; H54.8 Legal blindness, as defined in USA; K21.9 Gastro-esophageal reflux disease without esophagitis; Z79.84 Long term (current) use of oral hypoglycemic drugs; Z79.899 Other long term (current) drug therapy; Z87.442 Personal history of urinary calculi; Z87.891 Personal history of nicotine dependence; Z23 Encounter for immunization; Z82.49 Family history of ischemic heart disease and other diseases of the circulatory system
CPT/HCPCS: 73630; 73720; 80053; 82962; 83036; 85025; 87070; 93005; 93922; 93925; 97162; 99285; A9575